=== PATIENT | female | born 2000 | race Caucasian/White ===

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

== ENCOUNTER 2020-11-04 22:40 | Inpatient (IN) ==
[2020-11-04 22:52] VITALS: BMI 21.5
[2020-11-04] MEDS ORDERED: ZOFRAN INJ 4 MG VIAL IVP ONE (23:45)
[2020-11-04] MEDS ORDERED: NS 1000 ML 1,000 ML IV ONE (23:45)
[2020-11-04] MEDS ORDERED: MORPHINE SULFATE INJ 2 MG INJ IVP ONE (23:45)
[2020-11-04 23:47] LABS: BILIRUBIN,URINE NEGATIVE (NEGATIVE); BLOOD/HEMOGLOBIN,URINE 5+ (NEGATIVE); GLUCOSE, URINE NEGATIVE (NEGATIVE); KETONES,URINE NEGATIVE (NEGATIVE); LEUKOCYTE ESTERASE ,URINE 1+ (NEGATIVE); NITRITES,URINE NEGATIVE (NEGATIVE); PROTEIN,URINE NEGATIVE (NEGATIVE); UROBILINOGEN,URINE NORMAL (NORMAL)
[2020-11-04 23:55] LABS: APPEARANCE,URINE CLEAR (CLEAR); BACTERIA,URINE NEGATIVE /HPF (NEGATIVE); COLOR,URINE YELLOW (YELLOW); SQUAMOUS EPITHELIAL CELL,UR RARE /HPF (NEGATIVE)
[2020-11-05 00:13] LABS: BASOPHILS # (AUTO) 0.1 X10^3/uL (0.0-0.1); BASOPHILS % (AUTO) 0.4 % (0.2-1.0); EOSINOPHILS % (AUTO) 0.2 % (0.9-2.9); HEMATOCRIT 39.4 % (36.0-47.0); HEMOGLOBIN 12.5 g/dL (12.0-16.0); LYMPHOCYTES # (AUTO) 2.2 X10^3/uL (1.3-2.9); LYMPHOCYTES % (AUTO) 18.7 % (21.0-51.0); MEAN CORPUSCULAR HEMOGLOBIN 23.7 pg (27.0-34.0); MEAN CORPUSCULAR HGB CONC 31.8 g/dL (33.0-35.0); MEAN CORPUSCULAR VOLUME 74.6 fL (80.0-100.0); MEAN PLATELET VOLUME 9.2 fL (7.4-11.0); MONOCYTES # (AUTO) 0.6 x10^3/uL (0.3-0.8); MONOCYTES % (AUTO) 4.7 % (0.0-13.0); NEUTROPHILS # (AUTO) 9.1 x10^3/uL (2.2-4.8); PLATELET COUNT 226 X10^3/uL (150.0-450.0); RED BLOOD COUNT 5.28 X10^6/uL (3.5-5.4); RED CELL DISTRIBUTION WIDTH 16.8 % (11.6-16.5); WHITE BLOOD COUNT 11.9 X10^3/uL (3.6-10.0)
[2020-11-05] MEDS ORDERED: MORPHINE SULFATE INJ 2 MG INJ ONE (00:14)
[2020-11-05] MEDS ORDERED: NS 1000 ML 1,000 ML ONE ×3 (00:15→12:23)
[2020-11-05] MEDS ORDERED: ZOFRAN INJ 4 MG VIAL ONE (00:15)
[2020-11-05 00:16] LABS: MICROCYTOSIS SLIGHT; PLATELET MORPHOLOGY COMMENT NORMAL (NORMAL)
[2020-11-05 00:20] LABS: ALANINE AMINOTRANSFERASE 17 Units/L (12-78); ALBUMIN 3.8 g/dL (3.4-5.0); ALKALINE PHOSPHATASE 53 Units/L (46-116); AMYLASE 41 Units/L (25-115); ASPARTATE AMINO TRANSFERASE 17 Units/L (15-37); BLOOD UREA NITROGEN 7 mg/dL (7-18); CALCIUM 9.1 mg/dL (8.5-10.1); CARBON DIOXIDE 28.1 mmol/L (21-32); CHLORIDE 105 mmol/L (98-107); CREATININE 0.86 mg/dL (0.55-1.02); LIPASE 115 Units/L (73-393); SODIUM 144 mmol/L (136-145); eGFR NON BLACK RACES > 60 (>60)
[2020-11-05 00:21] LABS: SERUM PREGNANCY TEST, QUAL NEGATIVE <10 mIU/mL
[2020-11-05] MEDS ORDERED: DILAUDID INJ IVP ONE (02:08)
--- NOTE | 2020-11-05 02:08 | ED.ABDFE ---
HPI Time Seen Time Seen by Provider: 11/04/20 23:39 PCP Primary Care Physician: Saul HPI Comment HPI Comment: Patient presents with complaint of low abdominal pain since this morning. Pain has worsened over the course of the day and includes N/V. No bad food exposure. No known sick contacts. Complaint Chief Complaint:: Rt sided, middle abdominal pain started this morning Source History Provided: Patient Mode of arrival Mode of Arrival: Ambulatory Timing Onset of Chief Complaint: 11/04/20 PMH PMH Past Medical History: No Past Medical History: Depression Past Surgical History: Yes Surgical History: Cholecystectomy Family History History of Family Medical Conditions: Yes Family Medical History: Diabetes Mellitus Social History Do you use any recreational Drugs:: No Lives Where: Home Infectious screening In the last 2 months have you had wt loss of >10#?: NO Have you had fever, night sweats or hemotysis?: No Have you traveled outside the country in the last 6 months?: No Isolation: Standard ROS Review of Systems Constitutional: See HPI Gastrointestinal/Abdominal: See HPI, Abdominal Pain and Vomiting All Other Systems: Reviewed and Negative PE Vital Signs Vitals: Temperature 97.9 F Pulse Rate [Apical] 84 Pulse Rate 69 Respiratory Rate 16 Blood Pressure [Right Arm] 119/78 Blood Pressure 111/75 O2 Sat by Pulse Oximetry 97 General Limitations: No Limitations General Appearance: Alert and In No Apparent Distress Head Head Exam: Normal Inspection, Atraumatic and Normocephalic Eyes Eye exam: Normal Appearance and EOMI ENT ENT Exam: Normal Exam Neck Neck Exam: Normal Inspection and Trachea Midline Chest Chest Inspection: Normal Inspection and Symmetric Chest Wall Rise Respiratory Respiratory Exam: Normal Lung Sounds Bilat Respiratory Exam: Bilateral: Clear to Auscultation Cardiovascular Cardiovascular Exam: Regular Rate, Normal Rhythm and Normal Heart Sounds Abdominal Exam Abdominal Exam: Normal Inspection, Normal Bowel Sounds, Tenderness and Guarding Abdominal Tenderness: RLQ Extremeties Extremities Exam: Normal Inspection Neurologic Neurological Exam: Alert and Oriented X3 Psychiatric Psychiatric Exam: Normal Affect and Normal Mood Skin Skin Exam: Warm, Dry and Intact COURSE Reevaluation 1st: Unchanged (continues to complain of pain despite intervention in the ED) Consultation Called: 03:44 Consultation Comments: Spoke to Dr. Belle who accepts patient for admission. ROR Labs Reviewed Laboratory Results Reviewed?: Yes Result Diagrams: 11/04/20 00:00 11/04/20 00:00 Laboratory: WBC 11.9 X10^3/uL (3.6-10.0) H 11/04/20 00:00 RBC 5.28 X10^6/uL (3.5-5.4) 11/04/20 00:00 Hgb 12.5 g/dL (12.0-16.0) 11/04/20 00:00 Hct 39.4 % (36.0-47.0) 11/04/20 00:00 MCV 74.6 fL (80.0-100.0) L 11/04/20 00:00 MCH 23.7 pg (27.0-34.0) L 11/04/20 00:00 MCHC 31.8 g/dL (33.0-35.0) L 11/04/20 00:00 RDW 16.8 % (11.6-16.5) H 11/04/20 00:00 Plt Count 226 X10^3/uL (150.0-450.0) 11/04/20 00:00 Plt Count Comment Adequate (ADEQUATE) 11/04/20 00:00 MPV 9.2 fL (7.4-11.0) 11/04/20 00:00 Neut % (Auto) 76.0 % (42.0-75.0) H 11/04/20 00:00 Lymph % (Auto) 18.7 % (21.0-51.0) L 11/04/20 00:00 [place] % (Auto) 4.7 % (0.0-13.0) 11/04/20 00:00 Eos % (Auto) 0.2 % (0.9-2.9) L 11/04/20 00:00 Baso % (Auto) 0.4 % (0.2-1.0) 11/04/20 00:00 Neut # (Auto) 9.1 x10^3/uL (2.2-4.8) H 11/04/20 00:00 Lymph # (Auto) 2.2 X10^3/uL (1.3-2.9) 11/04/20 00:00 [place] # (Auto) 0.6 x10^3/uL (0.3-0.8) 11/04/20 00:00 Eos # (Auto) 0.0 x10^3/uL (0.0-0.2) 11/04/20 00:00 Baso # (Auto) 0.1 X10^3/uL (0.0-0.1) 11/04/20 00:00 Absolute Nucleated RBC 0.0 /100WBC 11/04/20 00:00 Plt Morphology Comment Normal (NORMAL) 11/04/20 00:00 RBC Morphology Abnormal (NORMAL) A 11/04/20 00:00 Microcytosis Slight A 11/04/20 00:00 Sodium 144 mmol/L (136-145) 11/04/20 00:00 Corrected Sodium TNP 11/04/20 00:00 Potassium 3.8 mmol/L (3.5-5.1) 11/04/20 00:00 Chloride 105 mmol/L (98-107) 11/04/20 00:00 Carbon Dioxide 28.1 mmol/L (21-32) 11/04/20 00:00 BUN 7 mg/dL (7-18) 11/04/20 00:00 Creatinine 0.86 mg/dL (0.55-1.02) 11/04/20 00:00 Est GFR (MDRD) Af Amer > 60 (>60) 11/04/20 00:00 Est GFR (MDRD) Non-Af > 60 (>60) 11/04/20 00:00 Glucose 95 mg/dL (65-99) 11/04/20 00:00 Calcium 9.1 mg/dL (8.5-10.1) 11/04/20 00:00 Corrected Calcium TNP 11/04/20 00:00 Total Bilirubin 0.30 mg/dL (0.2-1.0) 11/04/20 00:00 AST 17 Units/L (15-37) 11/04/20 00:00 ALT 17 Units/L (12-78) 11/04/20 00:00 Alkaline Phosphatase 53 Units/L (46-116) 11/04/20 00:00 Total Protein 8.0 g/dL (6.4-8.2) 11/04/20 00:00 Albumin 3.8 g/dL (3.4-5.0) 11/04/20 00:00 Globulin 4.2 g/dL (2.5-4.5) 11/04/20 00:00 Albumin/Globulin Ratio 0.9 Ratio (1.1-2.1) L 11/04/20 00:00 Amylase 41 Units/L (25-115) 11/04/20 00:00 Lipase 115 Units/L (73-393) 11/04/20 00:00 HCG, Qual Negative <10 mIU/mL 11/04/20 00:00 Specimen Type Clean catch urine 11/04/20: Urine Color Yellow (YELLOW) 11/04/20: Urine Appearance Clear (CLEAR) 11/04/20: Urine pH 5.0 (5.0 - 8.0) 11/04/20: Ur Specific [place] 1.020 (1.000-1.030) 11/04/20: Urine Protein Negative (NEGATIVE) 11/04/20: Urine Glucose (UA) Negative (NEGATIVE) 11/04/20: Urine Ketones Negative (NEGATIVE) 11/04/20: Urine Occult Blood 5+ (NEGATIVE) 11/04/20: Urine Nitrite Negative (NEGATIVE) 11/04/20: Urine Bilirubin Negative (NEGATIVE) 11/04/20 23: Urine Urobilinogen Normal (NORMAL) 11/04/20 23: Ur Leukocyte Esterase 1+ (NEGATIVE) 11/04/20: Urine RBC 10-20 /HPF (0-3) A 11/04/20: Urine WBC 0-2 /HPF (0-5) 11/04/20 23:29 Ur Squamous Epith Cells Rare /HPF (NEGATIVE) 11/04/20: Urine Bacteria Negative /HPF (NEGATIVE) 11/04/20 23: Ur Culture Indicated? No/not indicated 11/04/20 23:29 XRAY X-ray Results: PROCEDURE: CT Abdomen and Pelvis without Contrast . HISTORY: HEMATURIA . TECHNIQUE: Axial images were performed through the abdomen and pelvis without the administration of IV contrast with multiplanar reformations . Oral contrast was not administered . Dose reduction techniques including Automated Exposure C ontrol (AEC) and adjustment of mA and kV were utilized . COMPARISON: None . TECHNICAL QUALITY: Satisfactory . FINDINGS: Clear lung bases. Liver, spleen, adrenals, pancreas show no significant abnormality. Kidneys show no stones or obstruction. Normal size biliary tree with previous cholecystectomy. No abdominal ascites or pneumoperitoneum. Normal aorta. No lymphadenopathy. Small-bowel obstruction at the terminal ileum with the etiology not apparent from the study. Appendix is questionably visualized and appears normal. Large bowel is unremarkable. Pelvis shows small amount of fluid in the cul de sac. Normal urinary bladder and reproductive organs. No acute bony abnormality. IMPRESSION: 1. Partial small bowel obstruction at the terminal ileum with the etiology not apparent from the study. 2. Appendix is questionably visualized and appears normal right lower quadrant. 3. Small amount of ascites in the cul de sac. 4. No other abnormality identified. Report was called by myself to Dr. Lucas at 2:35 a.m. central standard time on 11/05/2020 Electronically signed by: Joseph Valencia (Nov 05, 2020 03:36:56) Opioid Opioid Risk Tool Age (Radames box if 16-45): Yes Total: 1 Total Score Risk Category: Low Risk Copyright: Mario HERRERA predicting aberrant behaviors Diagnosis Discharge Problem: SBO (small bowel obstruction)
[2020-11-05] MEDS ORDERED: DILAUDID INJ ONE (02:14)
--- NOTE | 2020-11-05 02:41 | RAD ---
PROCEDURE: Acute Abdomen Series .HISTORY: Right mid abdomen pain.TECHNIQUE: AP supine and upright abdomen with AP chest x-ray views .COMPARISON: None .TECHNICAL QUALITY: Satisfactory .FINDINGS:Chest x-ray shows clear lungs and normal size heart.No pneumoperitoneum.Scattered gas and feces in the colon without distention. No obstruction or ileus.No organomegaly.Surgical clips right upper quadrantNo abnormal calcifications.No acute bony abnormality.IMPRESSION:1. Nonspecific bowel gas pattern.2. No active cardiopulmonary disease.Electronically signed by: Joseph Valencia (Nov 05, 2020 02:39:27)
--- NOTE | 2020-11-05 03:39 | CT ---
PROCEDURE: CT Abdomen and Pelvis without Contrast .HISTORY: HEMATURIA .TECHNIQUE: Axial images were performed through the abdomen and pelvis without the administration of IV contrast with multiplanar reformations . Oral contrast was not administered . Dose reduction techniques including Automated Exposure Control (AEC) and adjustment of mA and kV were utilized .COMPARISON: None .TECHNICAL QUALITY: Satisfactory .FINDINGS:Clear lung bases.Liver, spleen, adrenals, pancreas show no significant abnormality. Kidneys show no stones or obstruction.Normal size biliary tree with previous cholecystectomy.No abdominal ascites or pneumoperitoneum.Normal aorta.No lymphadenopathy.Small-bowel obstruction at the terminal ileum with the etiology not apparent from the study. Appendix is questionably visualized and appears normal. Large bowel is unremarkable.Pelvis shows small amount of fluid in the cul de sac. Normal urinary bladder and reproductive organs.No acute bony abnormality.IMPRESSION:1. Partial small bowel obstruction at the terminal ileum with the etiology not apparent from the study.2. Appendix is questionably visualized and appears normal right lower quadrant.3. Small amount of ascites in the cul de sac.4. No other abnormality identified.Report was called by myself to Dr. Lucas at 2:35 a.m. central standard time on 1Electronically signed by: Joseph Valencia (Nov 05, 2020 03:36:56)
[2020-11-05] MEDS ORDERED: DILAUDID INJ IVP PRN (03:45)
[2020-11-05] MEDS ORDERED: ZOFRAN INJ 4 MG VIAL IVP PRN (03:45)
[2020-11-05] MEDS: NS 1000 ML 1,000 ML IV SCH ×3 (04:20→21:00)
[2020-11-05 05:41] LABS: BASOPHILS % (AUTO) 0.3 % (0.2-1.0); HEMATOCRIT 34.4 % (36.0-47.0); HEMOGLOBIN 11.1 g/dL (12.0-16.0); MEAN CORPUSCULAR HEMOGLOBIN 24.1 pg (27.0-34.0); MEAN CORPUSCULAR HGB CONC 32.3 g/dL (33.0-35.0); MEAN CORPUSCULAR VOLUME 74.7 fL (80.0-100.0); MEAN PLATELET VOLUME 9.4 fL (7.4-11.0); MONOCYTES # (AUTO) 0.3 x10^3/uL (0.3-0.8); MONOCYTES % (AUTO) 2.5 % (0.0-13.0); NEUTROPHILS # (AUTO) 9.5 x10^3/uL (2.2-4.8); NEUTROPHILS % (AUTO) 88.2 % (42.0-75.0); PLATELET COUNT 211 X10^3/uL (150.0-450.0); RED CELL DISTRIBUTION WIDTH 16.2 % (11.6-16.5); WHITE BLOOD COUNT 10.7 X10^3/uL (3.6-10.0)
[2020-11-05 05:54] LABS: ALANINE AMINOTRANSFERASE 14 Units/L (12-78); ALKALINE PHOSPHATASE 44 Units/L (46-116); ASPARTATE AMINO TRANSFERASE 16 Units/L (15-37); BLOOD UREA NITROGEN 8 mg/dL (7-18); CALCIUM 7.8 mg/dL (8.5-10.1); CHLORIDE 110 mmol/L (98-107); COR CA(FOR HYPOALB) 8.6 mg/dL (8.5-10.1); COR NA(FOR HYPERGLY) 143 mmol/L (136-145); SODIUM 143 mmol/L (136-145); TOTAL PROTEIN 6.5 g/dL (6.4-8.2); eGFR NON BLACK RACES > 60 (>60)
[2020-11-05 06:04] LABS: MICROCYTOSIS SLIGHT; PLATELET MORPHOLOGY COMMENT NORMAL (NORMAL)
[2020-11-05] MEDS ORDERED: ZOFRAN INJ 4 MG VIAL IVP ONE (10:02)
[2020-11-06] MEDS: NS 1000 ML 1,000 ML IV SCH ×2 (05:00→06:36)
--- NOTE | 2020-11-06 05:16 | RAD ---
PROCEDURE: Abdomen X-ray 1 View .HISTORY: BOWEL OBSTRUCTION .TECHNIQUE: AP supine abdomen view .COMPARISON: None .TECHNICAL QUALITY: Satisfactory .FINDINGS:Gas and feces in the colon without distention. Mild small bowel gas seen in the mid abdomen without abnormal distention.No organomegaly.No abnormal calcifications.No bony abnormality.IMPRESSION:Nonspecific bowel-gas pattern.Electronically signed by: Joseph Valencia (Nov 06, 2020 05:14:23)
[2020-11-06 08:33] LABS: BASOPHILS % (AUTO) 0.7 % (0.2-1.0); EOSINOPHILS % (AUTO) 0.9 % (0.9-2.9); HEMOGLOBIN 10.9 g/dL (12.0-16.0); LYMPHOCYTES # (AUTO) 3.1 X10^3/uL (1.3-2.9); MEAN CORPUSCULAR HEMOGLOBIN 23.8 pg (27.0-34.0); MEAN CORPUSCULAR HGB CONC 31.1 g/dL (33.0-35.0); MEAN CORPUSCULAR VOLUME 76.4 fL (80.0-100.0); MEAN PLATELET VOLUME 9.2 fL (7.4-11.0); MONOCYTES # (AUTO) 0.3 x10^3/uL (0.3-0.8); MONOCYTES % (AUTO) 5.3 % (0.0-13.0); NEUTROPHILS # (AUTO) 1.5 x10^3/uL (2.2-4.8); NEUTROPHILS % (AUTO) 30.1 % (42.0-75.0); PLATELET COUNT 161 X10^3/uL (150.0-450.0); RED BLOOD COUNT 4.58 X10^6/uL (3.5-5.4); RED CELL DISTRIBUTION WIDTH 16.5 % (11.6-16.5); WHITE BLOOD COUNT 4.9 X10^3/uL (3.6-10.0)
[2020-11-06 08:46] LABS: ALANINE AMINOTRANSFERASE 13 Units/L (12-78); ALBUMIN 2.6 g/dL (3.4-5.0); ALKALINE PHOSPHATASE 42 Units/L (46-116); ASPARTATE AMINO TRANSFERASE 14 Units/L (15-37); BLOOD UREA NITROGEN 6 mg/dL (7-18); CALCIUM 7.8 mg/dL (8.5-10.1); CARBON DIOXIDE 27.2 mmol/L (21-32); CHLORIDE 112 mmol/L (98-107); COR CA(FOR HYPOALB) 8.9 mg/dL (8.5-10.1); CREATININE 0.73 mg/dL (0.55-1.02); SODIUM 146 mmol/L (136-145); TOTAL PROTEIN 5.7 g/dL (6.4-8.2); eGFR NON BLACK RACES > 60 (>60)
[2020-11-06] MEDS ORDERED: PROTONIX INJ 40 MG VIAL IVP SCH (09:00)
[2020-11-06 09:29] LABS: HYPOCHROMASIA SLIGHT; MICROCYTOSIS SLIGHT; PLATELET MORPHOLOGY COMMENT NORMAL (NORMAL)
[2020-11-06 10:21] LABS: SMUDGE CELLS SLIGHT
[2020-11-06 12:31] VITALS: BP 90/44
== END 2020-11-06 13:45 | disposition home or self-care (01) | DRG 390 ==
LOC: ER 22:44 → OBS 22:44 → OBSVTOIN 11-05 03:45 → OBS 11-05 04:33 → MED/SURG 11-05 13:52
PROVIDERS: ADMIT Surgery; ATTEND Surgery
DX: Z20.822 Contact with and (suspected) exposure to COVID-19; K59.09 Other constipation; K56.690 Other partial intestinal obstruction; R11.2 Nausea with vomiting, unspecified; R10.84 Generalized abdominal pain